=== PATIENT | female | born 1945 | race Caucasian/White ===

== ENCOUNTER 2020-07-03 13:06 | Outpatient (CLI) | payer MEDICARE, OTHER ==
--- NOTE | 2020-07-03 14:09 | SLEEP CARE CONSULTATION ---
Information from patient questionnaire entered by Tahira Wright. I have reviewed and concur with the information entered by Tahira Wright. This document represents the service I personally performed and the decisions made by me, Bel Sosa, RN, MSN, ECMO SPECIALIST. History of Present Illness Service Date and Time: 07/03/2020 1306 Previous diagnosis: Mild, Obstructive Sleep Apnea-Hypopnea Syndrome AHI: 5.4 (in 2006) Reason for follow up: first compliance after device update Equipment type: CPAP Equipment obtained from: [employer] (getting supplies as needed / was not pleased with customer service at set up) Mask style: Nasal pillows Last cushion change: none since set up Prior sleep studies: Yes Year and Where: 2005 and 2008 - [facility] [facility] Sleep Sleep Study - Results Prior sleep studies: Yes Year and Where: [facility] [employer] [facility] [employer] [facility] [facility] CPAP Compliance Data - Data Reviewed with Patient Average duration of nightly device use: 9.2 Compliance rate %: 97 Current pressure setting (cmH2O): 8-9 Humidity settin Average residual AHI: 0.8 (95Th% pressure 8.9cmH20) Subjective Missed days of use due to: reports: travel Patient concerns: reports: condensation in mask/hose (a little - adjusted humidity but still condensation in mask . ). denies: aerophagia, mask discomfort, air blowing in eyes, mask leak noise, nasal congestion, dry mouth, nose, throat, epistaxis Observed to snore while using device: No Current pressure setting perceived as: comfortable On therapy, patient: reports: sleeping better (not getting to up to bathroom as ofter), awakening more refreshed, being more awake and alert during the day, more rested overall (napping less from 2-3 times a week to 1 time a week. ). denies: drowsiness while driving Initial [place] Sleepiness Scale score: 7 (in 2006) Current [place] Sleepiness Scale score: 7 Allergies and Home Medications Known drug allergies: Yes (see list at initial visit ) Home medication list reviewed: No (no change ) Review of Systems Review of systems same as previous: Yes Physical Exam Blood Pressure: 136/66 Cuff size: long Heart Rate: 96 O2 Saturation: 74 Height: 5 ft 1 in Weight: 174 lb Body Mass Index: 32.8 BMI Classification: Obese Impression and Plan 1. Obstructive Sleep Apnea-Hypopnea Syndrome, mild, with good treatment compliance and good apnea control. On CPAP therapy, the patient has better sleep quality and is more rested overall. She is very pleased with new CPAP device and pressure with improvement in sleep with less nocturia and reduced napping during the day. To reduce condensation, a heated hose was ordered. Patient requested at set up but was not available. Weight and obesity health risks discussed as well as association with her apnea and CPAP pressure requirements. She was advised of symptoms to report for pressure changes if weight changes significantlyPatient has worked with PCP for weight loss. Patient has seen a squeegee finisher and eats appropriately but still not able to lose weight. Patient's apnea severity and rationale for treatment to reduce apnea, improve sleep quality and reduce cardiovascular and cerebrovascular events was reviewed. Since patient has more severe apnea in supine position, patient advised to avoid supine sleep with pillow positioning if unable to use CPAP while ill or if without electricity to reduce apnea risk. * Continue atuo CPAP pressure at 8-9 cmH2O * heated hose * Notify me if snoring with mask or feeling that the pressure is too much or too little * Attempt to lose weight * Call this office if any problems using CPAP * Return for follow up in 1 year , or sooner if concerns arise Counseling Topics: Weight loss health impact Visit Type: In Office Time Spent with Patient (minutes): 30 Provider Statement: I spent 100% of the Face to Face Visit with the patient with greater than 50% spent counseling the patient and coordination of care.
[2020-07-03 14:10] VITALS: BP 136/66
== END 2020-07-03 13:07 | disposition home or self-care (01) ==
LOC: SC 13:06
PROVIDERS: ATTEND Nurse Practitioner Family
DX: G47.33 Obstructive sleep apnea (adult) (pediatric) (principal); E66.9 Obesity, unspecified; Z68.32 Body mass index [BMI] 32.0-32.9, adult
CPT/HCPCS: 99214; G0463; 99212

== ENCOUNTER 2021-07-28 11:22 | Outpatient (CLI) | payer MEDICARE, OTHER ==
[2021-07-28 11:58] VITALS: BP 122/70
--- NOTE | 2021-07-28 11:58 | SLEEP CARE CONSULTATION ---
Information from patient questionnaire entered by Florence Fox MA. I have reviewed and concur with the information entered by Florence Fox MA. This document represents the service I personally performed and the decisions made by , Cielo Dumont ARNP. History of Present Illness Service Date and Time: 07/28/2021 1122 Previous diagnosis: Mild, Obstructive Sleep Apnea-Hypopnea Syndrome AHI: 5.4 (in 2005) Reason for follow up: annual Equipment type: CPAP Equipment obtained from: [employer] (getting supplies as needed) Mask style: Nasal pillows Backup mask available: Yes (old mask) Last cushion change: 1-2 weeks Prior sleep studies: Yes Year and Where: [facility] additional information: MARVEL GUZMAN was diagnosed to have mild, AHI 5.4, obstructive sleep apnea- hypopnea syndrome and returned today for CPAP therapy annual follow-up. Sleep Study - Results Prior sleep studies: Yes Year and Where: [facility] CPAP Compliance Data - Data Reviewed with Patient Average duration of nightly device use: 9 hours 3 minutes Compliance rate %: 97 Current pressure setting (cmH2O): 8-9 Average residual AHI: 0.5 Central apnea: .3 Obstructive apnea: .2 Subjective Missed days of use due to: reports: travel (using old machine because new machine does not fit) Patient concerns: reports: dry mouth, nose, throat (occasional; just when having allergy issues ). denies: aerophagia, mask discomfort, air blowing in eyes, mask leak noise, condensation in mask/hose, nasal congestion, epistaxis, other Observed to snore while using device: No Current pressure setting perceived as: comfortable On therapy, patient: reports: sleeping better, awakening more refreshed, being more awake and alert during the day, more rested overall. denies: drowsiness while driving Initial [place] Sleepiness Scale score: 7 (in 2005) Current [place] Sleepiness Scale score: 6 (2020) Allergies and Home Medications Home medication list reviewed: Yes (no changes) Review of Systems Review of systems same as previous: Yes (no changes) Physical Exam Vital signs obtained and entered by: Dominique MANZO Blood Pressure: 122/70 (left) Cuff size: wrist Heart Rate: 71 O2 Saturation: 95 (with mask) Height: 5 ft 1 in Weight: 161 lb (with boots) Body Mass Index: 30.4 BMI Classification: Obese Impression and Plan 1. Obstructive Sleep Apnea-Hypopnea Syndrome, mild, with good treatment compliance and good apnea control. On CPAP therapy, the patient has better sleep quality and is more rested overall. Patient is very satisfied with current CPAP therapy and as significant improvement of her sleep apnea. She has no issues with using her CPAP. She states she will use her older CPAP when she travels. She has no questions or concerns today. Patient was encouraged to lose weight for their overall health and to reduce apneas. Patient's apnea severity and rationale for treatment to reduce apnea, improve sleep quality and reduce cardiovascular and cerebrovascular events was reviewed. I also reviewed the benefit of consistent device use of CPAP for diabetes and asthma. * Continue auto CPAP pressure at 8-9 cmH2O * Notify me if snoring with mask or feeling that the pressure is too much or too little * Attempt to lose weight * Call this office if any problems using CPAP * Return for follow up in 1 year, or sooner if concerns arise Counseling Topics: Spare mask, Weight loss health impact Visit Type: In Office Time Spent with Patient (minutes): 14 Provider Statement: I spent 100% of the Face to Face Visit with the patient with greater than 50% spent counseling the patient and coordination of care.
== END 2021-07-28 11:23 | disposition home or self-care (01) ==
LOC: SC 11:22
PROVIDERS: ATTEND Nurse Practitioner Family
DX: G47.33 Obstructive sleep apnea (adult) (pediatric) (principal); E66.9 Obesity, unspecified; Z68.30 Body mass index [BMI] 30.0-30.9, adult
CPT/HCPCS: 99212; G0463

== ENCOUNTER 2022-08-17 09:23 | Outpatient (CLI) | payer MEDICARE, OTHER ==
[2022-08-17 09:57] VITALS: BP 128/82
--- NOTE | 2022-08-17 09:57 | SLEEP CARE CONSULTATION ---
Information from patient questionnaire entered by Jessica Kelly. I have reviewed and concur with the information entered by Jessica Kelly. This document represents the service I personally performed and the decisions made by me, Cielo Dumont ARNP. History of Present Illness Service Date and Time: 08/17/2022922 Previous diagnosis: Mild, Obstructive Sleep Apnea-Hypopnea Syndrome AHI: 5.4 (in 2005) Reason for follow up: annual (LAST SEEN 07/2021) Equipment type: CPAP (RESMED) Equipment obtained from: [employer] (getting supplies as needed) Mask style: Nasal pillows Backup mask available: Yes (old mask) Last cushion change: 1+ month Prior sleep studies: Yes Year and Where: [facility] additional information: MARVEL GUZMAN was diagnosed to have mild, AHI 5.4, obstructive sleep apnea- hypopnea syndrome and returned today for CPAP therapy annual follow-up. Sleep Study - Results Prior sleep studies: Yes Year and Where: [facility] CPAP Compliance Data - Data Reviewed with Patient Average duration of nightly device use: 9 hrs 26 min Compliance rate %: 97 (02/17/22-08/15/22; 176/180 days used) Current pressure setting (cmH2O): 8-9 Average residual AHI: 0.6 Central apnea: 0.3 Obstructive apnea: 0.2 Subjective Missed days of use due to: reports: other (power outages) Patient concerns: reports: dry mouth, nose, throat, other (bloating from celiac disease). denies: aerophagia, mask discomfort, air blowing in eyes, mask leak noise, condensation in mask/hose, nasal congestion, epistaxis Observed to snore while using device: No Current pressure setting perceived as: comfortable On therapy, patient: reports: sleeping better, awakening more refreshed, being more awake and alert during the day, more rested overall. denies: drowsiness while driving Initial [place] Sleepiness Scale score: 7 (in 2005) Current [place] Sleepiness Scale score: 7 (08/17/22) Allergies and Home Medications Drug allergies reviewed: Yes (morphine, shellfish (iodine), oxycodone) Home medication list reviewed: Yes (no changes) Review of Systems Review of systems same as previous: Yes (no changes) Physical Exam Vital signs obtained and entered by: JESSICA Newton MA Blood Pressure: 128/82 (LEFT ARM) Cuff size: regular Heart Rate: 62 O2 Saturation: 95 Height: 5 ft 1 in Weight: 172 lb 3.2 oz Body Mass Index: 32.5 BMI Classification: Obese Impression and Plan 1. Obstructive Sleep Apnea-Hypopnea Syndrome, mild, with good treatment compliance and good apnea control. On CPAP therapy, the patient has better sleep quality and is more rested overall. Patient has significant improvement of their sleep apnea and are satisfied with current CPAP therapy. Patient denies problems with oral dryness, nasal congestion, epistaxis, skin irritation or aero phagia. Patient's apnea severity and rationale for treatment to reduce apnea, improve sleep quality and reduce cardiovascular and cerebrovascular events was reviewed. I also reviewed the benefit of consistent device use of CPAP for diabetes and asthma. 2. Obesity, unspecified. Currently patients BMI is 32.5. Obesity increases the risk of apnea, CPAP pressure requirements and overall health risks especially cardiovascular and diabetes. Thus patient is advised to lose weight. * Continue auto CPAP pressure at 8-9 cmH2O * Update supplies * Notify me if snoring with mask or feeling that the pressure is too much or too little * Attempt to lose weight * Call this office if any problems using CPAP * Return for follow up in 1 year, or sooner if concerns arise Counseling Topics: Spare mask, Weight loss health impact Visit Type: In Office Time Spent with Patient (minutes): 12 Provider Statement: I spent 100% of the Face to Face Visit with the patient with greater than 50% spent counseling the patient and coordination of care.
== END 2022-08-17 09:24 | disposition home or self-care (01) ==
LOC: SC 09:23
PROVIDERS: ATTEND Nurse Practitioner Family
DX: G47.33 Obstructive sleep apnea (adult) (pediatric) (principal); E66.9 Obesity, unspecified; Z68.32 Body mass index [BMI] 32.0-32.9, adult
CPT/HCPCS: 99212; G0463

== ENCOUNTER 2023-09-09 13:47 | Outpatient (CLI) | payer MEDICARE, OTHER ==
--- NOTE | 2023-09-09 14:17 | Sleep Patient Instructions ---
Sleep Center Visit Summary - Patient Visit Information Reason for Visit: Annual Visit - Patient Instructions Additional Instructions: You will continue with CPAP therapy with pressure set at 8-9 cmH2O. A supply prescription will be updated with your DME. I have added an order to have the machine serviced because of the noises it is making. We encourage you to continue to try to lose weight. Please follow up with the sleep care office in 1 year. - Clinic Information Contact: [facility] [address] [place] [address] [email or web address] T: [phone]
--- NOTE | 2023-09-09 14:23 | SLEEP CARE CONSULTATION ---
Information from patient questionnaire entered by Jessica Kelly. I have reviewed and concur with the information entered by Jessica Kelly. This document represents the service I personally performed and the decisions made by me, Cielo Dumont ARNP. History of Present Illness Service Date and Time: 09/09/2023 1347 Previous diagnosis: Mild, Obstructive Sleep Apnea-Hypopnea Syndrome AHI: 5.4 (in 2005) Reason for follow up: annual (LAST SEEN 07/2022) Equipment type: CPAP (RESMED 10, s/u 05/2020) Equipment obtained from: [employer] (getting supplies as needed) Mask style: Nasal pillows Mask brand: Resmed (P10) Backup mask available: Yes (old mask) Last cushion change: 1 month Prior sleep studies: Yes Year and Where: [facility] additional information: MARVEL GUZMAN was diagnosed to have mild, AHI 5.4, obstructive sleep apnea- hypopnea syndrome and returned today for CPAP therapy annual follow-up. Sleep Study - Results Prior sleep studies: Yes Year and Where: [facility] CPAP Compliance Data - Data Reviewed with Patient Average duration of nightly device use: 9 HRS 49 MINS Compliance rate %: 100 (09/07/22-09/06/23; 364/365 days used) Current pressure setting (cmH2O): 8-9 Average residual AHI: 0.4 Central apnea: 0.2 Obstructive apnea: 0.1 Average large leak: 6.5 L/min Subjective Patient concerns: reports: dry mouth, nose, throat (dry mouth; occasional). denies: aerophagia, mask discomfort, air blowing in eyes, mask leak noise, condensation in mask/hose, nasal congestion, epistaxis Observed to snore while using device: No Current pressure setting perceived as: comfortable On therapy, patient: reports: sleeping better, awakening more refreshed, being more awake and alert during the day, more rested overall. denies: drowsiness while driving Initial [place] Sleepiness Scale score: 7 (in 2005) Current [place] Sleepiness Scale score: 8 (09/09/23) Allergies and Home Medications Known drug allergies: Yes (as listed) Drug allergies reviewed: Yes Home medication list reviewed: Yes (no changes) Allergy and home medication list: Allergies iodine Allergy (Verified 09/08/23 10:41) Hives acetaminophen [From Percocet] Adverse Reaction (Verified 09/08/23 10:41) morphine Adverse Reaction (Verified 09/08/23 10:41) Emesis oxycodone [From Percocet] Adverse Reaction (Verified 09/08/23 10:41) Review of Systems Review of systems same as previous: Yes (NO CHANGE) Physical Exam Vital signs obtained and entered by: JESSICA Newton MA Blood Pressure: 150/75 (RIGHT ARM) Cuff size: regular Heart Rate: 77 O2 Saturation: 96 Height: 5 ft 1 in Weight: 167 lb 6.4 oz Body Mass Index: 31.6 BMI Classification: Obese Impression and Plan 1. Obstructive Sleep Apnea-Hypopnea Syndrome, mild, with good treatment compliance and good apnea control. On CPAP therapy, the patient has better sleep quality and is more rested overall. Patient has significant improvement of their sleep apnea and is satisfied with current CPAP therapy. She does get some dry mouth occasionlly. Patient denies problems with nasal congestion, epistaxis, skin irritation or aerophagia. Patient's apnea severity and rationale for treatment to reduce apnea, improve sleep quality and reduce cardiovascular and cerebrovascular events was reviewed. I also reviewed the benefit of consistent device use of CPAP for diabetes and asthma. 2. Obesity, unspecified. Currently patients BMI is 31.6. Obesity increases the risk of apnea, CPAP pressure requirements and overall health risks especially cardiovascular and diabetes. Thus patient is advised to lose weight. * Continue auto CPAP pressure at 8-9 cmH2O * Update supply prescription * Notify me if snoring with mask or feeling that the pressure is too much or too little * Attempt to lose weight * Call this office if any problems using CPAP * Return for follow up in 12 months, or sooner if concerns arise Counseling Topics: Spare mask, Weight loss health impact Prescriptions: Device supplies Follow up with Sleep Care in: 1 year Visit Type: In Office Time Spent with Patient (minutes): 20 Provider Statement: I spent 100% of the Face to Face Visit with the patient with greater than 50% spent counseling the patient and coordination of care.
[2023-09-09 14:27] VITALS: BP 150/75; O2SAT 96
== END 2023-09-09 13:48 | disposition home or self-care (01) ==
LOC: SC 13:47
PROVIDERS: ATTEND Nurse Practitioner Family
DX: G47.33 Obstructive sleep apnea (adult) (pediatric) (principal); E66.9 Obesity, unspecified; Z68.31 Body mass index [BMI] 31.0-31.9, adult
CPT/HCPCS: 99213; G0463; 99212